=== PATIENT | male | born 1965 | race Caucasian/White ===

== ENCOUNTER 2016-10-24 07:40 | Inpatient (IN) | payer BC, MEDICAID, OTHER ==
[2016-10-24] MEDS ORDERED: Sodium Chloride 0.9% 10 ML Syringe FLUSH PRN (09:45)
[2016-10-24] MEDS ORDERED: Iopamidol 755 MG/ML 150 ML Bottle IV ONE (09:53)
[2016-10-24] MEDS ORDERED: Ondansetron 4 MG/2 ML SDV IVPUSH PRN (09:53)
[2016-10-24] MEDS ORDERED: Sodium Chloride 0.9% 1,000 ML IV SCH (10:00)
[2016-10-24] MEDS: Sodium Chloride 0.9% 1,000 ML IV SCH ×3 (12:39→21:03)
--- NOTE | 2016-10-24 13:27 | CT ---
INDICATION: Abdominal pain. History of right nephrectomy for renal cell carcinoma [address] ABDOMEN AND PELVIS WITH CONTRAST: Spiral 2.5-mm axial sections were obtained through the abdomen and pelvis with oral and IV contrast (118 mL Isovue -370 at 3 mL per second) with sagittal and coronal reconstructions 10/24/2016 and compared with 10/19/2014. Total Exam DLP = 1156.92 mGy-cm. There appears to be increased calcification focally at the apex of the right ventricle compared with 2015. This may represent a coronary artery calcification, but should be correlated clinically. The heart did not appear increased in size or grossly enlarged. The lower lung jang visualized showed no evidence of a definite active infiltrate or effusion. There was a linear strand of density at the right lower lobe, which likely is fibrotic in nature. The liver, spleen, and gallbladder were unremarkable. The right kidney has increased in size compared with the previous examination to a maximum of 13 cm, compared with approximately 11 cm on the previous study, compatible with compensatory hypertrophy. Stable bilateral adrenal adenomas are suggested, as previously, appearing essentially unchanged, measuring 13 mm on the right and 26 mm on the left on coronal image #75. The left kidney showed evidence of a small cyst which has increased in size slightly to approximately 12 x 16 mm in the posterior medulla and cortex, compared with approximately 7.6 x 10 mm on the previous study. This lies in the upper middle pole of the left kidney. No focal abnormality was identified in the post nephrectomy right renal bed with colon now in that area. Multiple loops of dilated small bowel are noted to the distal ileum where the bowel narrows to normal lumen diameter gradually from dilated loops at the distal ileum. A definite focal are of obstruction is not identified, but it is suspected that an adhesion is present in that area of the right lower quadrant. The transition is felt to be present on coronal images #49 through #60. No definite focal abnormality to suggest a metastatic deposit was identified. The urinary bladder appeared normal. There is no definite focal retroperitoneal mass lesion. Retroperitoneal lymphadenopathy is noted, largely similar to the previous examination. It is relatively nonspecific. The largest node measured approximately 11 mm and is stable. The appendix appeared normal, measuring approximately 7.1 mm, seen on axial images #97 through #112, extending posterior to the cecum and inferior to the cecum. There are a few small fluid collections scattered about the abdomen in the retrocolic gutter on the right, upper right pelvis, mid right posterior pelvis, and posterior in lower pelvis, anterior to the rectosigmoid - rectum. These fluid collections could be related to previous surgery and scarring. Peritonitis is felt to be less likely. The prostate is enlarged, measuring 41 mm craniocaudad by 41 mm anteroposterior by 53 mm transversely. There are a few calcifications noted in the prostate also. The urinary bladder appeared normal. The inferior vena cava appeared to be patent. No definite gastric abnormality was identified. IMPRESSION: 1. Findings suggest a mechanical small-bowel obstruction distally at the level of the ileum with transition to normal distal-most ileum. Associated with this finding are multiple foci of fluid collections scattered about the abdomen, including a right paracolic gutter and upper through lower pelvis on the right and then centrally more inferiorly in the pelvis, anterior to the rectosigmoid area - rectum. An adhesion is suspected. This should be correlated clinically. 2. Bilateral adrenal adenomas appear to be stable. 3. Post right nephrectomy with no evidence of tumor bed metastasis or generalized metastatic process. 4. Small probable benign cystic structure upper middle pole right kidney has increased in size from a maximum diameter of 10 mm to 16 mm on the current study. Prostatic enlargement with some calcifications present. CT PELVIS: Examination of the pelvis was obtained by CT, as noted above, and revealed findings compatible with a distal small-bowel obstruction with normal caliber distal-most ileum noted in the right lower quadrant. This appears to be associated with multiple small fluid collections scattered about the pelvis mostly on the right, extending into the right paracolic gutter and into the lower posterior pelvis, anterior to the rectosigmoid. The prostate was somewhat enlarged. No additional organomegaly or mass lesions were identified. No definite metastatic disease process was seen. MTDD
--- NOTE | 2016-10-24 14:08 | PCM.HP ---
H&P History of Present Illness - General Date of Service: 10/24/16 Admit Problem/Dx: Admission Diagnosis/Problem Admission Diagnosis/Problem Abdominal pain Source of Information: Patient History Limitations: Reports: No Limitations - History of Present Illness Initial Comments - Free Text/Narative: This is a 51-year-old male patient that's had one week history of some diarrhea and vomiting. Says a diarrhea better but he continues to vomit. He saw Dr. Gonzales yesterday and his creatinine was 2.5. He has a history of nephrectomy for cancer. He was given a bag of fluid sent home on Zofran and potassium because of his low potassium. He came back today and not any better so he felt he should be admitted. Patient denies fevers, chills. He has abdominal cramping that is diffuse. He denies a blood in stool. He denies dysuria, pyuria, hematuria. Patient states he [place] got [place] from [place] but [place] in [place]. He is not been on any antibiotics recently. Abdomen Pain Score (Numeric/FACES): 10 - Related Data Allergies/Adverse Reactions: Allergies Allergy/AdvReac Type Severity Reaction Status Date / Time No Known Allergies Allergy Verified 10/24/16 11:18 Home Medications: Home Meds Allopurinol [Zyloprim] 300 mg PO DAILY 10/24/16 [History] Lisinopril 20 mg PO DAILY 10/24/16 [History] Ondansetron [Zofran ODT] 4 mg PO Q6H PRN 10/24/16 [History] Pantoprazole Sodium [Protonix] 40 mg PO DAILY 10/24/16 [History] Potassium Chloride [Klor-Con M20] 20 meq PO DAILY 10/24/16 [History] atorvaSTATin [Lipitor] 20 mg PO BEDTIME 10/24/16 [History] Past Medical History Other Genitourinary History: pt had right kidney removed in January 2014 d/t a tumor Musculoskeletal History: Reports: Gout Oncologic (Cancer) History: Reports: Other (See Below) Other Oncologic History: Pt had right kidney removed due to tumor. - Infectious Disease History Infectious Disease History: Reports: Chicken Pox - Past Surgical History HEENT Surgical History: Reports: Naso-Sinus Surgery Other HEENT Surgeries/Procedures: Pt had nasal surgery in 1988. Male Surgical History: Reports: Vasectomy Social & Family History - Family History Cardiac: Reports: Hypertension, [place] - Tobacco Use Smoking Status *Q: Current Some Day Smoker Years of Tobacco use: 30 Packs/Tins Daily: 0.5 - Alcohol Use Days Per Week of Alcohol Use: 2 Number of Drinks Per Day: 3 Total Drinks Per Week: 6 - Recreational Drug Use Recreational Drug Use: No H&P Review of Systems - Review of Systems: Review Of Systems: See Below General: Reports: Weakness, Decreased Appetite HEENT: Reports: No Symptoms Pulmonary: Reports: No Symptoms Cardiovascular: Reports: No Symptoms Gastrointestinal: Reports: Abdominal Pain, Diarrhea, Decreased Appetite, Nausea , Vomiting. Denies: Black Stool, Bloody Stool, Constipation, Difficulty Swallowing, Hematemesis, Hematochezia, Melena Genitourinary: Reports: No Symptoms Musculoskeletal: Reports: No Symptoms Skin: Reports: No Symptoms Psychiatric: Reports: No Symptoms Neurological: Reports: No Symptoms Hematologic/Lymphatic: Reports: No Symptoms Immunologic: Reports: No Symptoms Exam - Exam Exam: See Below - Vital Signs Vital Signs: Last Vital Signs Temp Pulse 76 10/24/16 09:09 Resp 18 10/24/16 09:09 BP 111/74 10/24/16 09:09 Pulse Ox 96 10/24/16 09:09 Weight: 207 lb - Exam General: Alert, Oriented, Mild Distress HEENT: Hearing Intact, Posterior Pharynx Clear, TMs Clear. No: Mucosa Moist & [place] Neck: Supple, Trachea Midline. No: Lymphadenopathy Lungs: Clear to Auscultation, Normal Respiratory Effort. No: Crackles, Rales, Rhonchi Cardiovascular: Regular Rate, Regular Rhythm, Normal S1, Normal S2. No: Irregular Rhythm, Bradycardia, Tachycardia, Systolic Murmur, Diastolic Murmur GI/Abdominal Exam: Soft, No Organomegaly, Distended, Tender (Mildly diffuse.), Other (Hypoactive bowel sounds.) Back Exam: Normal Inspection Extremities: Normal Inspection, Normal Range of Motion, Non-Tender, No Pedal Edema Skin: Dry, Intact Neurological: Normal Tone Neuro Extensive - Mental Status: Alert, Oriented x3, Normal Cognition Psychiatric: Alert. No: Normal Affect, Normal Mood - Patient Data Lab Results Last 24 hrs: Laboratory Results - last 24 hr 10/24/16 10/24/16 10/24/16 Range/Units 10:05 10:05 10:05 WBC 9.1 (4.5-12.0) X10-3/uL RBC 6.21 H (4.30-5.75) x10(6)uL Hgb 17.5 H (11.5-15.5) g/dL Hct 52.4 H (30.0-51.3) % MCV 84.3 (80-96) fL MCH 28.1 (27.7-33.6) pg MCHC 33.4 (32.2-35.4) g/dL RDW 13.3 (11.5-15.5) % Plt Count 235 (125-369) X10(3)uL Sodium 136 (135-145) mmol/L Potassium 3.5 (3.5-5.3) mmol/L Chloride 94 L (100-110) mmol/L Carbon Dioxide 32 H (23-29) mmol/L BUN 61 H (5-20) mg/dL Creatinine 1.3 (0.6-1.3) mg/dL Est Cr Clr Drug Dosing 66.47 mL/min Estimated GFR (MDRD) 58 L (>60) BUN/Creatinine Ratio 46.9 H (9-20) Glucose 122 H (80-116) mg/dL Calcium 9.6 (8.6-10.2) mg/dL Total Bilirubin 1.2 (0.1-1.3) mg/dL AST 15 (5-27) IU/L ALT 13 L (14-26) IU/L Alkaline Phosphatase 86 (56-112) IU/L Total Protein 7.9 (6.0-8.0) g/dL Albumin 4.4 (3.5-5.2) g/dL Globulin 3.5 g/dL Albumin/Globulin Ratio 1.3 Amylase 39 (28-100) U/L Result Diagrams: 10/24/16 10:05 10/24/16 10:05 *Q Meaningful Use (ADM) - VTE *Q VTE Criteria *Q: - Stroke *Q Stroke Criteria *Q: - AMI *Q AMI Criteria *Q: - Problem List (1) Gastroenteritis SNOMED Code(s): 91370064 ICD Code: K52.9 - NONINFECTIVE GASTROENTERITIS AND COLITIS, UNSPECIFIED Status: Acute Current Visit: Yes (2) Dehydration SNOMED Code(s): 44991969 ICD Code: E86.0 - DEHYDRATION Status: Acute Current Visit: Yes Problem List Initiated/Reviewed/Updated: Yes Orders Last 24hrs: Active Orders 24 hr Category Date Time Status Patient Status [ADT] Routine ADT 10/24/16 09:45 Active Height and Weight [RC] DAILY Care 10/24/16 09:45 Active Intake and Output [RC] QSHIFT Care 10/24/16 09:46 Active Oxygen Therapy [RC] PRN Care 10/24/16 09:45 Active Up ad Deya [RC] ASDIRECTED Care 10/24/16 09:45 Active VTE/DVT Education [RC] Per Unit Routine Care 10/24/16 09:45 Active Vital Signs [RC] 08,12,16,20,00,04 Care 10/24/16 09:45 Active Clear Liquid Diet [DIET] Diet 10/24/16 Lunch Active CULTURE-STOOL [MREF] Routine Lab 10/24/16 09:50 Uncollected UA W/O MICROSCOPIC [URIN] Routine Lab 10/24/16 09:45 Uncollected Ondansetron [Zofran] Med 10/24/16 09:53 Active 4 mg IVPUSH Q4H PRN Sodium Chloride 0.9% [Normal Saline] 1,000 ml Med 10/24/16 12:15 Active IV ASDIRECTED Sodium Chloride 0.9% [Saline Flush] Med 10/24/16 09:45 Active 10 ml FLUSH ASDIRECTED PRN Peripheral IV Insertion Adult [OM.PC] Routine Oth 10/24/16 09:45 Ordered Resuscitation Status Routine Resus Stat 10/24/16 09:45 Ordered Medication Orders Sodium Chloride (Normal Saline) 1,000 mls @ 250 mls/hr IV ASDIRECTED [facility] Last Admin: 10/24/16 12:39 Dose: 250 mls/hr Ondansetron HCl (Zofran) 4 mg IVPUSH Q4H PRN PRN Reason: Nausea/Vomiting Sodium Chloride (Saline Flush) 10 ml FLUSH ASDIRECTED PRN PRN Reason: Keep Vein Open Last Admin: 10/24/16 10:24 Dose: 10 ml Assessment/Plan Comment:: 1. For observation. 2. Clear liquids. 3. Hold home medications. 4. Zofran IV when necessary for nausea or vomiting. 5. CT scan abdomen and pelvis 6. CBC, Chem-12, amylase, UA 7. Up ad deya. 8. Full code.
[2016-10-24] MEDS ORDERED: Morphine 4 MG/ML Syringe IVPUSH PRN (15:17)
[2016-10-24] MEDS ORDERED: Lidocaine 2% Jelly 5 ML Urojet MUCMEM ONE ×2 (15:18→15:19)
--- NOTE | 2016-10-24 15:31 | PCM.SN ---
- Free Text/Narrative Note: full consult dictated orders written will follow with you
[2016-10-24] MEDS: Pantoprazole 40 MG Vial IVPUSH SCH (17:10)
[2016-10-24] MEDS: Nicotine 14 MG/24 Hr Patch TRDERM SCH (19:44)
--- NOTE | 2016-10-24 23:10 | CONS ---
DATE OF CONSULTATION: 10/24/2016 REASON FOR CONSULTATION: Small bowel obstruction. HISTORY OF PRESENT ILLNESS: This is a 51-year-old, white male, who was admitted today with a one-week history of abdominal pain, abdominal distention, nausea, vomiting, and diarrhea. He said that this started approximately one week ago, was accompanied with abdominal discomfort. Apparently, was seen in the clinic yesterday and was noted to have an elevated creatinine, was given some IV fluid and sent home, presented today and was just as bad in terms of his discomfort and nausea and vomiting. He did state that he has been passing gas, he had a bowel movement today, has had some emesis as well. Denies any fever or chills. Has occasional abdominal cramping. He had a CT scan done today, which demonstrated some dilated intestine consistent with a small-bowel obstruction. His abdominal surgery history is significant for right nephrectomy, for cancer. Currently, denies any black or bloody stools, hematemesis, dysuria, hematuria, fever, or chills. SOCIAL HISTORY: The patient does smoke half a pack per day. Does have occasional 2-3 drinks per week, mainly on the weekend. FAMILY HISTORY: Significant for hypertension. PAST MEDICAL HISTORY: Significant for renal tumor, gout, gastroesophageal reflux disease, hypertension, and hypercholesterolemia. PAST SURGICAL HISTORY: Significant for nasal surgery, vasectomy, and a right nephrectomy. HOME MEDICATIONS: At the time of admission included allopurinol 300 mg daily, lisinopril 20 mg daily, Zofran 4 mg p.o. q.6, Protonix 40 mg daily, potassium chloride daily, and Lipitor 20 mg daily. REVIEW OF SYSTEMS: CONSTITUTIONAL: Some weakness and decreased appetite. HEENT: Negative. PULMONARY: Negative. CARDIAC: Negative. GASTROINTESTINAL: As noted above. GENITOURINARY: Denies any symptoms. MUSCULOSKELETAL: Denies any symptoms. SKIN: Denies any symptoms. NEUROLOGIC: Denies any symptoms. PHYSICAL EXAMINATION: GENERAL: This is a well-developed, well-nourished white male, appearing in mild distress. VITAL SIGNS: Temperature is 36.7, pulse rate is 73, blood pressure 129/85, 93% on pulse oximetry, respiratory rate 16. HEENT: Grossly within normal limits. LUNGS: Clear to auscultation. HEART: Regular rate and rhythm. ABDOMEN: Noted to be distended and tympanic with some mild tenderness throughout, but no rebound or guarding was noted. LABORATORY DATA: CT scan was reviewed, which demonstrates findings suggestive of small-bowel obstruction in the level of the ileum. He had stable bilateral adrenal adenomas status post right nephrectomy and has a small cystic structure in the left kidney. White count is 9.3 with H and H 17.5 and 52.4. Electrolytes were notable for chloride of 94, carbon dioxide of 32, BUN 61, glucose of 122, ALT of 13. UA was essentially unremarkable. ASSESSMENT: Small bowel obstruction. PLAN: In addition to the hydration, which the patient is currently getting, I will be placing an NG tube and a Carter catheter to fully monitor his in's and out's. Recommend repeat laboratory work in the morning. We will follow along with serial exams. /[id number] /MODL
[2016-10-25] MEDS: Sodium Chloride 0.9% 1,000 ML IV SCH (03:53)
[2016-10-25] MEDS: Morphine 2 MG/ML Syringe IVPUSH PRN (05:39)
--- NOTE | 2016-10-25 07:45 | PCM.PN ---
- General Info Date of Service: 10/25/16 Admission Dx/Problem (Free Text): Patient states he has no nausea or vomiting with NG tube. His abdominal pain is a little bit better and mostly under the umbilicus centrally. He has passed some gas. Had a little diarrhea yesterday. - Patient Data Vitals - Most Recent: Last Vital Signs Temp 97.9 F 10/25/16 07:37 Pulse 58 L 10/25/16 07:37 Resp 16 10/25/16 07:37 BP 126/75 10/25/16 07:37 Pulse Ox 93 L 10/25/16 07:37 Weight - Most Recent: 211 lb I&O - Last 24 Hours: Intake & Output 10/24/16 10/25/16 10/25/16 22:59 06:59 14:59 Intake Total 2137 1064 Output Total 1200 800 Balance 937 264 Lab Results Last 24 Hours: Laboratory Results - last 24 hr 10/24/16 10/24/16 10/24/16 Range/Units 10:05 10:05 10:05 WBC 9.1 (4.5-12.0) X10-3/uL RBC 6.21 H (4.30-5.75) x10(6)uL Hgb 17.5 H (11.5-15.5) g/dL Hct 52.4 H (30.0-51.3) % MCV 84.3 (80-96) fL MCH 28.1 (27.7-33.6) pg MCHC 33.4 (32.2-35.4) g/dL RDW 13.3 (11.5-15.5) % Plt Count 235 (125-369) X10(3)uL MPV (7.4-10.4) fL Neut % (Auto) (46-82) % Lymph % (Auto) (13-37) % [place] % (Auto) (4-12) % Eos % (Auto) (1.0-5.0) % Baso % (Auto) (0-2) % Neut # (Auto) (1.6-8.3) # Lymph # (Auto) (0.6-5.0) # [place] # (Auto) (0.0-1.3) # Eos # (Auto) (0.0-0.8) # Baso # (Auto) (0.0-0.2) # Sodium 136 (135-145) mmol/L Potassium 3.5 (3.5-5.3) mmol/L Chloride 94 L (100-110) mmol/L Carbon Dioxide 32 H (23-29) mmol/L BUN 61 H (5-20) mg/dL Creatinine 1.3 (0.6-1.3) mg/dL Est Cr Clr Drug Dosing 66.47 mL/min Estimated GFR (MDRD) 58 L (>60) BUN/Creatinine Ratio 46.9 H (9-20) Glucose 122 H (80-116) mg/dL Calcium 9.6 (8.6-10.2) mg/dL Total Bilirubin 1.2 (0.1-1.3) mg/dL AST 15 (5-27) IU/L ALT 13 L (14-26) IU/L Alkaline Phosphatase 86 (56-112) IU/L Total Protein 7.9 (6.0-8.0) g/dL Albumin 4.4 (3.5-5.2) g/dL Globulin 3.5 g/dL Albumin/Globulin Ratio 1.3 Amylase 39 (28-100) U/L Urine Color (YELLOW) Urine Appearance (CLEAR) Urine pH (5.0-6.5) Ur Specific [place] (1.010-1.025) Urine Protein (NEGATIVE) mg/dL Urine Glucose (UA) (NEGATIVE) mg/dL Urine Ketones (NEGATIVE) mg/dL Urine Occult Blood (NEGATIVE) Urine Nitrite (NEGATIVE) Urine Bilirubin (NEGATIVE) Urine Urobilinogen (NEGATIVE) mg/dL Ur Leukocyte Esterase (NEGATIVE) 10/24/16 10/25/16 10/25/16 Range/Units 14:22 06:35 06:35 WBC 6.7 (4.5-12.0) X10-3/uL RBC 5.36 (4.30-5.75) x10(6)uL Hgb 15.0 (11.5-15.5) g/dL Hct 45.6 (30.0-51.3) % MCV 85.1 (80-96) fL MCH 28.0 (27.7-33.6) pg MCHC 32.9 (32.2-35.4) g/dL RDW 13.1 (11.5-15.5) % Plt Count 216 (125-369) X10(3)uL MPV 9.5 (7.4-10.4) fL Neut % (Auto) 56.2 (46-82) % Lymph % (Auto) 26.1 (13-37) % [place] % (Auto) 13.5 H (4-12) % Eos % (Auto) 3 (1.0-5.0) % Baso % (Auto) 1 (0-2) % Neut # (Auto) 3.8 (1.6-8.3) # Lymph # (Auto) 1.7 (0.6-5.0) # [place] # (Auto) 0.9 (0.0-1.3) # Eos # (Auto) 0.2 (0.0-0.8) # Baso # (Auto) 0.1 (0.0-0.2) # Sodium 142 (135-145) mmol/L Potassium 3.6 (3.5-5.3) mmol/L Chloride 107 D (100-110) mmol/L Carbon Dioxide 28 (23-29) mmol/L BUN 28 H D (5-20) mg/dL Creatinine 0.8 (0.6-1.3) mg/dL Est Cr Clr Drug Dosing 108.01 mL/min Estimated GFR (MDRD) > 60 (>60) BUN/Creatinine Ratio 35.0 H (9-20) Glucose 102 (80-116) mg/dL Calcium 8.9 (8.6-10.2) mg/dL Total Bilirubin 1.1 (0.1-1.3) mg/dL AST 11 D (5-27) IU/L ALT 10 L D (14-26) IU/L Alkaline Phosphatase 71 (56-112) IU/L Total Protein 6.2 (6.0-8.0) g/dL Albumin 3.6 (3.5-5.2) g/dL Globulin 2.6 g/dL Albumin/Globulin Ratio 1.4 Amylase (28-100) U/L Urine Color Yellow (YELLOW) Urine Appearance Clear (CLEAR) Urine pH 7.0 H (5.0-6.5) Ur Specific [place] 1.005 L (1.010-1.025) Urine Protein Negative (NEGATIVE) mg/dL Urine Glucose (UA) Normal (NEGATIVE) mg/dL Urine Ketones Negative (NEGATIVE) mg/dL Urine Occult Blood Negative (NEGATIVE) Urine Nitrite Negative (NEGATIVE) Urine Bilirubin Negative (NEGATIVE) Urine Urobilinogen Normal (NEGATIVE) mg/dL Ur Leukocyte Esterase Negative (NEGATIVE) Med Orders - Current: Current Medications Morphine Sulfate (Morphine) 2 mg IVPUSH Q1H PRN PRN Reason: Pain Last Admin: 10/25/16 05:39 Dose: 2 mg Nicotine (Habitrol) 14 mg TRDERM DAILY@1600 [facility] Last Admin: 10/24/16 19:44 Dose: Not Given Ondansetron HCl (Zofran) 4 mg IVPUSH Q4H PRN PRN Reason: Nausea/Vomiting Pantoprazole Sodium (Protonix Iv) 40 mg IVPUSH Q24H [facility] Last Admin: 10/24/16 17:10 Dose: 40 mg Sodium Chloride (Saline Flush) 10 ml FLUSH ASDIRECTED PRN PRN Reason: Keep Vein Open Last Admin: 10/24/16 10:24 Dose: 10 ml Discontinued Medications Sodium Chloride (Normal Saline) 1,000 mls @ 500 mls/hr IV ASDIRECTED [facility] Stop: 10/24/16 11:59 Last Admin: 10/24/16 10:25 Dose: 500 mls/hr Sodium Chloride (Normal Saline) 1,000 mls @ 150 mls/hr IV ASDIRECTED [facility] Last Admin: 10/25/16 03:53 Dose: 150 mls/hr Iopamidol (Isovue-370 (76%)) 150 ml IV ONETIME ONE Stop: 10/24/16 09:54 Last Admin: 10/24/16 11:19 Dose: 118 ml Lidocaine HCl (Xylocaine 2% Jelly) 5 ml MUCMEM ONETIME ONE Stop: 10/24/16 15:19 Last Admin: 10/24/16 16:08 Dose: 5 ml Lidocaine HCl (Xylocaine 2% Jelly) 5 ml MUCMEM ONETIME ONE Stop: 10/24/16 15:20 Last Admin: 10/24/16 16:08 Dose: 5 ml Morphine Sulfate (Morphine) 4 mg IVPUSH Q4H PRN PRN Reason: Abdominal Pain Last Admin: 10/24/16 17:35 Dose: 4 mg - Exam General: Alert, Oriented, Cooperative GI/Abdominal Exam: Other (Abdomen is soft still mildly distended. Hypoactive bowel sounds. Mild pain on palpation. No rebound or guarding.) - Problem List & Annotations (1) Dehydration SNOMED Code(s): 61852555 Code(s): E86.0 - DEHYDRATION Status: Acute Current Visit: Yes (2) Small bowel obstruction SNOMED Code(s): 293210514 Code(s): K56.69 - OTHER INTESTINAL OBSTRUCTION Status: Acute Current Visit: Yes - Problem List Review Problem List Initiated/Reviewed/Updated: Yes - My Orders Last 24 Hours: My Active Orders 10/24/16 09:45 Height and Weight [RC] DAILY Oxygen Therapy [RC] PRN Up ad Deya [RC] ASDIRECTED VTE/DVT Education [RC] Per Unit Routine Vital Signs [RC] 08,12,16,20,00,04 Sodium Chloride 0.9% [Saline Flush] 10 ml FLUSH ASDIRECTED PRN Peripheral IV Insertion Adult [OM.PC] Routine Resuscitation Status Routine 10/24/16 09:46 Intake and Output [RC] 06,14,22 10/24/16 09:50 CULTURE-STOOL [MREF] Routine 10/24/16 09:53 Ondansetron [Zofran] 4 mg IVPUSH Q4H PRN 10/24/16 14:13 Consult to Physician [CONS] Routine 10/24/16 17:37 Morphine 2 mg IVPUSH Q1H PRN 10/24/16 Dinner Nothing per Oral Now Diet [DIET] 10/25/16 07:40 Patient Status [ADT] Routine 10/25/16 07:45 D5 1/2 NS w/ 20 mEq/L KCl 1,000 ml IV ASDIRECTED - Plan Plan:: 1. Hydrations much improved. Changes fluids to D5 half-normal saline at 1 25 mL an hour. 2. Changes status from observation to inpatient. 3. Dr. Kelley to manage NG tube, small bowel obstruction and Carter.
[2016-10-25] MEDS: D5 1/2 NS w/ 20 mEq/L KCl 1,000 ML IV SCH ×2 (09:43→17:22)
--- NOTE | 2016-10-25 10:32 | PCM.SURGPN ---
- General Info Date of Service: 10/25/16 - Review of Systems Systems Review Comment:: feels better today. still has some abdominal pain had a bowel movement this am. - Patient Data Vitals - Most Recent: Last Vital Signs Temp 36.6 C 10/25/16 07:37 Pulse 58 L 10/25/16 07:37 Resp 16 10/25/16 07:37 BP 126/75 10/25/16 07:37 Pulse Ox 93 L 10/25/16 07:37 Weight - Most Recent: 95.799 kg I&O - Last 24 Hours: Intake & Output 10/24/16 10/25/16 10/25/16 22:59 06:59 14:59 Intake Total 2137 1064 Output Total 1200 800 Balance 937 264 Lab Results Last 24 Hrs: Laboratory Results - last 24 hr 10/24/16 10/25/16 10/25/16 Range/Units 14:22 06:35 06:35 WBC 6.7 (4.5-12.0) X10-3/uL RBC 5.36 (4.30-5.75) x10(6)uL Hgb 15.0 (11.5-15.5) g/dL Hct 45.6 (30.0-51.3) % MCV 85.1 (80-96) fL MCH 28.0 (27.7-33.6) pg MCHC 32.9 (32.2-35.4) g/dL RDW 13.1 (11.5-15.5) % Plt Count 216 (125-369) X10(3)uL MPV 9.5 (7.4-10.4) fL Neut % (Auto) 56.2 (46-82) % Lymph % (Auto) 26.1 (13-37) % Rankin % (Auto) 13.5 H (4-12) % Eos % (Auto) 3 (1.0-5.0) % Baso % (Auto) 1 (0-2) % Neut # (Auto) 3.8 (1.6-8.3) # Lymph # (Auto) 1.7 (0.6-5.0) # Rankin # (Auto) 0.9 (0.0-1.3) # Eos # (Auto) 0.2 (0.0-0.8) # Baso # (Auto) 0.1 (0.0-0.2) # Sodium 142 (135-145) mmol/L Potassium 3.6 (3.5-5.3) mmol/L Chloride 107 D (100-110) mmol/L Carbon Dioxide 28 (23-29) mmol/L BUN 28 H D (5-20) mg/dL Creatinine 0.8 (0.6-1.3) mg/dL Est Cr Clr Drug Dosing 108.01 mL/min Estimated GFR (MDRD) > 60 (>60) BUN/Creatinine Ratio 35.0 H (9-20) Glucose 102 (80-116) mg/dL Calcium 8.9 (8.6-10.2) mg/dL Total Bilirubin 1.1 (0.1-1.3) mg/dL AST 11 D (5-27) IU/L ALT 10 L D (14-26) IU/L Alkaline Phosphatase 71 (56-112) IU/L Total Protein 6.2 (6.0-8.0) g/dL Albumin 3.6 (3.5-5.2) g/dL Globulin 2.6 g/dL Albumin/Globulin Ratio 1.4 Urine Color Yellow (YELLOW) Urine Appearance Clear (CLEAR) Urine pH 7.0 H (5.0-6.5) Ur Specific [place] 1.005 L (1.010-1.025) Urine Protein Negative (NEGATIVE) mg/dL Urine Glucose (UA) Normal (NEGATIVE) mg/dL Urine Ketones Negative (NEGATIVE) mg/dL Urine Occult Blood Negative (NEGATIVE) Urine Nitrite Negative (NEGATIVE) Urine Bilirubin Negative (NEGATIVE) Urine Urobilinogen Normal (NEGATIVE) mg/dL Ur Leukocyte Esterase Negative (NEGATIVE) Med Orders - Current: Current Medications Potassium Chloride/Dextrose/Sod Cl (D5 1/2 Ns W/ 20 Meq/L Kcl) 1,000 mls @ 125 mls/hr IV Q8H [facility] Last Admin: 10/25/16 09:43 Dose: 125 mls/hr Morphine Sulfate (Morphine) 2 mg IVPUSH Q1H PRN PRN Reason: Pain Last Admin: 10/25/16 05:39 Dose: 2 mg Nicotine (Habitrol) 14 mg TRDERM DAILY@1600 [facility] Last Admin: 10/24/16 19:44 Dose: Not Given Ondansetron HCl (Zofran) 4 mg IVPUSH Q4H PRN PRN Reason: Nausea/Vomiting Pantoprazole Sodium (Protonix Iv) 40 mg IVPUSH Q24H [facility] Last Admin: 10/24/16 17:10 Dose: 40 mg Sodium Chloride (Saline Flush) 10 ml FLUSH ASDIRECTED PRN PRN Reason: Keep Vein Open Last Admin: 10/24/16 10:24 Dose: 10 ml Discontinued Medications Sodium Chloride (Normal Saline) 1,000 mls @ 500 mls/hr IV ASDIRECTED [facility] Stop: 10/24/16 11:59 Last Admin: 10/24/16 10:25 Dose: 500 mls/hr Sodium Chloride (Normal Saline) 1,000 mls @ 150 mls/hr IV ASDIRECTED [facility] Last Admin: 10/25/16 03:53 Dose: 150 mls/hr Iopamidol (Isovue-370 (76%)) 150 ml IV ONETIME ONE Stop: 10/24/16 09:54 Last Admin: 10/24/16 11:19 Dose: 118 ml Lidocaine HCl (Xylocaine 2% Jelly) 5 ml MUCMEM ONETIME ONE Stop: 10/24/16 15:19 Last Admin: 10/24/16 16:08 Dose: 5 ml Lidocaine HCl (Xylocaine 2% Jelly) 5 ml MUCMEM ONETIME ONE Stop: 10/24/16 15:20 Last Admin: 10/24/16 16:08 Dose: 5 ml Morphine Sulfate (Morphine) 4 mg IVPUSH Q4H PRN PRN Reason: Abdominal Pain Last Admin: 10/24/16 17:35 Dose: 4 mg - Exam General: Alert, Oriented, No Acute Distress Lungs: Clear to Auscultation, Normal Respiratory Effort Cardiovascular: Regular Rate, Regular Rhythm GI/Abdominal Exam: Normal Bowel Sounds, Soft, Distended (but much improved since yesterday ). No: Tender - Problem List & Annotations (1) Small bowel obstruction SNOMED Code(s): 923394417 Code(s): K56.69 - OTHER INTESTINAL OBSTRUCTION Status: Acute Current Visit: Yes - Problem List Review Problem List Initiated/Reviewed/Updated: Yes - My Orders Last 24 Hours: Active Orders 24 hr Category Date Time Status Patient Status [ADT] Routine ADT 10/25/16 07:40 Active Carter Catheter Insertion [Insert Urinary Catheter] [OM. Care 10/24/16 15:30 Ordered PC] Q24H Gastrointestinal Tube Mgmt [RC] 08,16,00 Care 10/24/16 15:16 Active Height and Weight [RC] 06 Care 10/24/16 09:45 Active Intake and Output [RC] 06,14,22 Care 10/24/16 09:46 Active Oxygen Therapy [RC] PRN Care 10/24/16 09:45 Active Up ad Deya [RC] ASDIRECTED Care 10/24/16 09:45 Active Urinary Catheter Assessment [RC] QSHIFT Care 10/24/16 15:17 Active VTE/DVT Education [RC] Per Unit Routine Care 10/24/16 09:45 Active Vital Signs [RC] 08,12,16,20,00,04 Care 10/24/16 09:45 Active Consult to Physician [CONS] Routine Cons 10/24/16 14:13 Ordered Nothing per Oral Now Diet [DIET] Diet 10/24/16 Dinner Active CULTURE-STOOL [MREF] Routine Lab 10/24/16 09:48 Received D5 1/2 NS w/ 20 mEq/L KCl 1,000 ml Med 10/25/16 07:45 Active IV Q8H Morphine Med 10/24/16 17:37 Active 2 mg IVPUSH Q1H PRN Nicotine [Habitrol] Med 10/24/16 16:00 Active 14 mg TRDERM DAILY@1600 Ondansetron [Zofran] Med 10/24/16 09:53 Active 4 mg IVPUSH Q4H PRN Pantoprazole [ProTONIX IV] Med 10/24/16 16:00 Active 40 mg IVPUSH Q24H Sodium Chloride 0.9% [Saline Flush] Med 10/24/16 09:45 Active 10 ml FLUSH ASDIRECTED PRN NG [Nasogastric Orogastric Tube Insertion] [OM.PC] Oth 10/24/16 15:16 Ordered Routine Peripheral IV Insertion Adult [OM.PC] Routine Oth 10/24/16 09:45 Ordered Resuscitation Status Routine Resus Stat 10/24/16 09:45 Ordered Medication Orders Potassium Chloride/Dextrose/Sod Cl (D5 1/2 Ns W/ 20 Meq/L Kcl) 1,000 mls @ 125 mls/hr IV Q8H [facility] Last Admin: 10/25/16 09:43 Dose: 125 mls/hr Morphine Sulfate (Morphine) 2 mg IVPUSH Q1H PRN PRN Reason: Pain Last Admin: 10/25/16 05:39 Dose: 2 mg Nicotine (Habitrol) 14 mg TRDERM DAILY@1600 [facility] Last Admin: 10/24/16 19:44 Dose: Ondansetron HCl (Zofran) 4 mg IVPUSH Q4H PRN PRN Reason: Nausea/Vomiting Pantoprazole Sodium (Protonix Iv) 40 mg IVPUSH Q24H [facility] Last Admin: 10/24/16 17:10 Dose: 40 mg Sodium Chloride (Saline Flush) 10 ml FLUSH ASDIRECTED PRN PRN Reason: Keep Vein Open Last Admin: 10/24/16 10:24 Dose: 10 ml - Assessment Assessment (Free Text/Narrative):: improving - Plan Plan (Free Text/Narrative):: would continue current rx.
[2016-10-25] MEDS: Pantoprazole 40 MG Vial IVPUSH SCH (16:16)
[2016-10-25] MEDS: Nicotine 14 MG/24 Hr Patch TRDERM SCH (16:59)
--- NOTE | 2016-10-25 17:38 | PCM.SN ---
- Free Text/Narrative Note: continues to pass flatus. abd is feeling better. soft and nontender on exam. continues to improve. anticipate d/cing the ngt in am if he continues to improve.
[2016-10-26] MEDS: D5 1/2 NS w/ 20 mEq/L KCl 1,000 ML IV SCH ×4 (01:31→17:01)
--- NOTE | 2016-10-26 08:41 | PN ---
DATE SEEN: 10/26/2016 CHIEF COMPLAINT: Sore throat and ear pain. HISTORY OF PRESENT ILLNESS: A 51-year-old male admitted on the 10/24/2016 for small bowel obstruction. This morning complains of sore throat, despite using Chloraseptic spray. He also complains of ear pain with [id number]. He continues to pass flatus and this morning has no abdominal pain. PAST MEDICAL HISTORY: Hypertension. REVIEW OF SYSTEMS: No fever. PHYSICAL EXAMINATION: GENERAL: Not in distress. VITAL SIGNS: Blood pressure 144/99, temperature 98.4. EARS, NOSE AND THROAT: Negative. NECK: Supple. CARDIOVASCULAR: Normal. ABDOMEN: Soft, benign. Normal bowel sounds. LABORATORY DATA: This morning no new labs. FINAL IMPRESSION: 1. Small bowel obstruction. 2. Sore throat, likely due to NG tube. 3. Uncontrolled hypertension. PLAN: Dr. Kelley is managing the NG tube and I believe once it is out, the sore throat will feel better. I am not going to recommend anything today until the NG tube is out and he is able to eat for oral blood pressure medications. /[id number] BECKY/ALLISON
[2016-10-26] MEDS: Morphine 2 MG/ML Syringe IVPUSH PRN (09:37)
--- NOTE | 2016-10-26 10:47 | PCM.SURGPN ---
- General Info Date of Service: 10/26/16 - Review of Systems General: Reports: No Symptoms Gastrointestinal: Reports: Flatus, Other (bowel movement ). Denies: Abdominal Pain - Patient Data Vitals - Most Recent: Last Vital Signs Temp 36.9 C 10/26/16 07:50 Pulse 73 10/26/16 07:50 Resp 17 10/26/16 07:50 BP 144/99 H 10/26/16 07:50 Pulse Ox 94 L 10/26/16 07:50 Weight - Most Recent: 95.339 kg I&O - Last 24 Hours: Intake & Output 10/25/16 10/26/16 10/26/16 22:59 06:59 14:59 Intake Total 2160 928 Output Total 700 475 Balance 1460 453 Med Orders - Current: Current Medications Potassium Chloride/Dextrose/Sod Cl (D5 1/2 Ns W/ 20 Meq/L Kcl) 1,000 mls @ 125 mls/hr IV Q8H [facility] Last Admin: 10/26/16 09:11 Dose: 125 mls/hr Morphine Sulfate (Morphine) 2 mg IVPUSH Q1H PRN PRN Reason: Pain Last Admin: 10/26/16 09:37 Dose: 2 mg Nicotine (Habitrol) 14 mg TRDERM DAILY@1600 [facility] Last Admin: 10/25/16 16:59 Dose: Not Given Ondansetron HCl (Zofran) 4 mg IVPUSH Q4H PRN PRN Reason: Nausea/Vomiting Pantoprazole Sodium (Protonix Iv) 40 mg IVPUSH Q24H [facility] Last Admin: 10/25/16 16:16 Dose: 40 mg Sodium Chloride (Saline Flush) 10 ml FLUSH ASDIRECTED PRN PRN Reason: Keep Vein Open Last Admin: 10/24/16 10:24 Dose: 10 ml Discontinued Medications Sodium Chloride (Normal Saline) 1,000 mls @ 500 mls/hr IV ASDIRECTED [facility] Stop: 10/24/16 11:59 Last Admin: 10/24/16 10:25 Dose: 500 mls/hr Sodium Chloride (Normal Saline) 1,000 mls @ 150 mls/hr IV ASDIRECTED [facility] Last Admin: 10/25/16 03:53 Dose: 150 mls/hr Iopamidol (Isovue-370 (76%)) 150 ml IV ONETIME ONE Stop: 10/24/16 09:54 Last Admin: 10/24/16 11:19 Dose: 118 ml Lidocaine HCl (Xylocaine 2% Jelly) 5 ml MUCMEM ONETIME ONE Stop: 10/24/16 15:19 Last Admin: 10/24/16 16:08 Dose: 5 ml Lidocaine HCl (Xylocaine 2% Jelly) 5 ml MUCMEM ONETIME ONE Stop: 10/24/16 15:20 Last Admin: 10/24/16 16:08 Dose: 5 ml Morphine Sulfate (Morphine) 4 mg IVPUSH Q4H PRN PRN Reason: Abdominal Pain Last Admin: 10/24/16 17:35 Dose: 4 mg - Exam General: Alert, Oriented, Cooperative Lungs: Clear to Auscultation, Normal Respiratory Effort Cardiovascular: Regular Rate GI/Abdominal Exam: Normal Bowel Sounds, Soft, Non-Tender - Problem List & Annotations (1) Small bowel obstruction SNOMED Code(s): 305053758 Code(s): K56.69 - OTHER INTESTINAL OBSTRUCTION Status: Acute Current Visit: Yes - Problem List Review Problem List Initiated/Reviewed/Updated: Yes - My Orders Last 24 Hours: Active Orders 24 hr Category Date Time Status Communication Order [RC] ROUTINE Care 10/26/16 10:45 Ordered Remove Reyes Catheter [Urinary Catheter Removal] [RC] Care 10/26/16 10:44 Ordered Per Unit Routine Nothing per Oral Now Diet [DIET] Diet 10/26/16 Lunch Ordered NG [Nasogastric Orogastric Tube Removal] [OM.PC] Oth 10/26/16 10:44 Ordered Routine Medication Orders Potassium Chloride/Dextrose/Sod Cl (D5 1/2 Ns W/ 20 Meq/L Kcl) 1,000 mls @ 125 mls/hr IV Q8H [facility] Last Admin: 10/26/16 09:11 Dose: 125 mls/hr Infusion: 10/26/16 09:11 Dose: 125 mls/hr Admin: 10/26/16 01:35 Dose: 125 mls/hr Infusion: 10/26/16 01:35 Dose: 125 mls/hr Admin: 10/26/16 01:31 Dose: 125 mls/hr Infusion: 10/26/16 01:22 Dose: 125 mls/hr Admin: 10/25/16 17:22 Dose: 125 mls/hr Infusion: 10/25/16 17:22 Dose: 125 mls/hr Admin: 10/25/16 09:43 Dose: 125 mls/hr Morphine Sulfate (Morphine) 2 mg IVPUSH Q1H PRN PRN Reason: Pain Last Admin: 10/26/16 09:37 Dose: 2 mg Admin: 10/25/16 05:39 Dose: 2 mg Nicotine (Habitrol) 14 mg TRDERM DAILY@1600 [facility] Last Admin: 10/25/16 16:59 Dose: Not Given Admin: 10/24/16 19:44 Dose: Ondansetron HCl (Zofran) 4 mg IVPUSH Q4H PRN PRN Reason: Nausea/Vomiting Pantoprazole Sodium (Protonix Iv) 40 mg IVPUSH Q24H [facility] Last Admin: 10/25/16 16:16 Dose: 40 mg Admin: 10/24/16 17:10 Dose: 40 mg Sodium Chloride (Saline Flush) 10 ml FLUSH ASDIRECTED PRN PRN Reason: Keep Vein Open Last Admin: 10/24/16 10:24 Dose: 10 ml - Assessment Assessment (Free Text/Narrative):: ostruction appears resolving - Plan Plan (Free Text/Narrative):: dc ngt and reyes ice chips
[2016-10-26] MEDS: Nicotine 14 MG/24 Hr Patch TRDERM SCH (16:25)
[2016-10-26] MEDS: Pantoprazole 40 MG Vial IVPUSH SCH (16:28)
[2016-10-27] MEDS: D5 1/2 NS w/ 20 mEq/L KCl 1,000 ML IV SCH (01:35)
[2016-10-27 08:03] VITALS: BP 124/87
--- NOTE | 2016-10-27 09:07 | PCM.SURGPN ---
- General Info Date of Service: 10/27/16 Functional Status: Reports: Tolerating Diet - Review of Systems Gastrointestinal: Reports: No Symptoms - Patient Data Vitals - Most Recent: Last Vital Signs Temp 36.8 C 10/27/16 08:00 Pulse 76 10/27/16 08:00 Resp 18 10/27/16 08:00 BP 124/87 10/27/16 08:00 Pulse Ox 96 10/27/16 08:00 Weight - Most Recent: 96.162 kg I&O - Last 24 Hours: Intake & Output 10/26/16 10/27/16 10/27/16 22:59 06:59 14:59 Intake Total 909 1118 Output Total 200 100 Balance 909 918 -100 Med Orders - Current: Current Medications Potassium Chloride/Dextrose/Sod Cl (D5 1/2 Ns W/ 20 Meq/L Kcl) 1,000 mls @ 125 mls/hr IV Q8H [facility] Last Admin: 10/27/16 01:35 Dose: 125 mls/hr Morphine Sulfate (Morphine) 2 mg IVPUSH Q1H PRN PRN Reason: Pain Last Admin: 10/26/16 09:37 Dose: 2 mg Nicotine (Habitrol) 14 mg TRDERM DAILY@1600 [facility] Last Admin: 10/26/16 16:25 Dose: Not Given Ondansetron HCl (Zofran) 4 mg IVPUSH Q4H PRN PRN Reason: Nausea/Vomiting Pantoprazole Sodium (Protonix Iv) 40 mg IVPUSH Q24H [facility] Last Admin: 10/26/16 16:28 Dose: 40 mg Sodium Chloride (Saline Flush) 10 ml FLUSH ASDIRECTED PRN PRN Reason: Keep Vein Open Last Admin: 10/24/16 10:24 Dose: 10 ml Discontinued Medications Sodium Chloride (Normal Saline) 1,000 mls @ 500 mls/hr IV ASDIRECTED [facility] Stop: 10/24/16 11:59 Last Admin: 10/24/16 10:25 Dose: 500 mls/hr Sodium Chloride (Normal Saline) 1,000 mls @ 150 mls/hr IV ASDIRECTED [facility] Last Admin: 10/25/16 03:53 Dose: 150 mls/hr Iopamidol (Isovue-370 (76%)) 150 ml IV ONETIME ONE Stop: 10/24/16 09:54 Last Admin: 10/24/16 11:19 Dose: 118 ml Lidocaine HCl (Xylocaine 2% Jelly) 5 ml MUCMEM ONETIME ONE Stop: 10/24/16 15:19 Last Admin: 10/24/16 16:08 Dose: 5 ml Lidocaine HCl (Xylocaine 2% Jelly) 5 ml MUCMEM ONETIME ONE Stop: 10/24/16 15:20 Last Admin: 10/24/16 16:08 Dose: 5 ml Morphine Sulfate (Morphine) 4 mg IVPUSH Q4H PRN PRN Reason: Abdominal Pain Last Admin: 10/24/16 17:35 Dose: 4 mg - Exam Lungs: Clear to Auscultation, Normal Respiratory Effort Cardiovascular: Regular Rate, Regular Rhythm GI/Abdominal Exam: Normal Bowel Sounds, Soft, Non-Tender, No Distention - Problem List & Annotations (1) Small bowel obstruction SNOMED Code(s): 258893908 Code(s): K56.69 - OTHER INTESTINAL OBSTRUCTION Status: Resolved Current Visit: Yes - Problem List Review Problem List Initiated/Reviewed/Updated: Yes - My Orders Last 24 Hours: Active Orders 24 hr Category Date Time Status Full Liquid Diet [DIET] Diet 10/27/16 Breakfast Active NG [Nasogastric Orogastric Tube Removal] [OM.PC] Oth 10/26/16 10:44 Ordered Routine Medication Orders Potassium Chloride/Dextrose/Sod Cl (D5 1/2 Ns W/ 20 Meq/L Kcl) 1,000 mls @ 125 mls/hr IV Q8H [facility] Last Admin: 10/27/16 01:35 Dose: 125 mls/hr Infusion: 10/27/16 01:01 Dose: 125 mls/hr Admin: 10/26/16 17:01 Dose: 125 mls/hr Infusion: 10/26/16 17:01 Dose: 125 mls/hr Admin: 10/26/16 09:11 Dose: 125 mls/hr Infusion: 10/26/16 09:11 Dose: 125 mls/hr Admin: 10/26/16 01:35 Dose: 125 mls/hr Infusion: 10/26/16 01:35 Dose: 125 mls/hr Admin: 10/26/16 01:31 Dose: 125 mls/hr Infusion: 10/26/16 01:22 Dose: 125 mls/hr Admin: 10/25/16 17:22 Dose: 125 mls/hr Infusion: 10/25/16 17:22 Dose: 125 mls/hr Admin: 10/25/16 09:43 Dose: 125 mls/hr Morphine Sulfate (Morphine) 2 mg IVPUSH Q1H PRN PRN Reason: Pain Last Admin: 10/26/16 09:37 Dose: 2 mg Admin: 10/25/16 05:39 Dose: 2 mg Nicotine (Habitrol) 14 mg TRDERM DAILY@1600 [facility] Last Admin: 10/26/16 16:25 Dose: Not Given Admin: 10/25/16 16:59 Dose: Not Given Admin: 10/24/16 19:44 Dose: Ondansetron HCl (Zofran) 4 mg IVPUSH Q4H PRN PRN Reason: Nausea/Vomiting Pantoprazole Sodium (Protonix Iv) 40 mg IVPUSH Q24H [facility] Last Admin: 10/26/16 16:28 Dose: 40 mg Admin: 10/25/16 16:16 Dose: 40 mg Admin: 10/24/16 17:10 Dose: 40 mg Sodium Chloride (Saline Flush) 10 ml FLUSH ASDIRECTED PRN PRN Reason: Keep Vein Open Last Admin: 10/24/16 10:24 Dose: 10 ml - Assessment Assessment (Free Text/Narrative):: appears to be resolved. - Plan Plan (Free Text/Narrative):: from my perspective can be discharged.
--- NOTE | 2016-10-27 10:08 | PN ---
DATE SEEN: 10/27/2016 CHIEF COMPLAINT: Small bowel obstruction. HISTORY OF PRESENT ILLNESS: A 51-year-old male who was admitted for small bowel obstruction. Overnight, he was able to eat well, and is passing stool and gas. He is able to go home this morning. PAST MEDICAL HISTORY: History of hypertension, gout, and hyperlipidemia. MEDICATIONS: Reviewed. ALLERGIES: Reviewed. PHYSICAL EXAMINATION: GENERAL: He is not in distress. VITAL SIGNS: He is afebrile. He has a blood pressure of 124/87. EARS, NOSE, and THROAT: Negative. NECK: Supple. CHEST: Crackles in the bases. EXTREMITIES: No edema. ABDOMEN: Soft and benign. LABORATORY DATA: No new labs today. FINAL IMPRESSION: 1. Small bowel obstruction. 2. Hypertension. 3. Gout. PLAN: My plan is to discharge him home on his regular home medications. We will follow up next week. I discussed this with Dr. Kelley and he is in agreement. The patient is tolerating fluids, and he is being conservatively managed successfully. /[id number] BECKY/ALLISON
--- NOTE | 2016-10-27 21:08 | DISCH ---
DISCHARGE DATE: 10/27/2016 REASON FOR ADMISSION: 1. Small bowel obstruction. 2. Dehydration. 3. Hypertension. DISCHARGE DIAGNOSES: 1. Small bowel obstruction. 2. Dehydration. 3. Hypertension. BRIEF HISTORY AND HOSPITAL COURSE: A 51-year-old male admitted for abdominal pain, vomiting, and dehydration and found to have small-bowel obstruction on abdominal CT done on 10/24/2016. Managed successfully with an NG tube conservatively and n.p.o. status, ready to go home this morning after tolerating fluids and fluid diet. DISCHARGE MEDICATIONS: He will return home with his home medications of Lipitor, lisinopril, allopurinol, pantoprazole. FOLLOWUP: Will see me or any primary care physician next week on . I spent more than 35 minutes in the discharge of this patient. /[id number] BECKY/ALLISON
== END 2016-10-27 10:10 | disposition home or self-care (01) | DRG 390 ==
LOC: FB.MS 07:40 → OBSVTOIN 10-25 07:40
PROVIDERS: ADMIT Family Medicine; ATTEND Family Medicine
PROC: 0D9670Z Drainage of Stomach with Drainage Device, Via Natural or Artificial Opening (ICD-10-PCS; principal; 2016-10-25)
DX: K56.60 Unspecified intestinal obstruction (principal); E86.0 Dehydration; F17.210 Nicotine dependence, cigarettes, uncomplicated; Z85.528 Personal history of other malignant neoplasm of kidney; Z90.5 Acquired absence of kidney; M10.9 Gout, unspecified; K21.9 Gastro-esophageal reflux disease without esophagitis; E78.00 Pure hypercholesterolemia, unspecified; J02.9 Acute pharyngitis, unspecified; I10 Essential (primary) hypertension; Z79.899 Other long term (current) drug therapy
CPT/HCPCS: 36415; 74177; 80053; 81003; 82150; 85025; 85027; 87015; 87045; 87046; 87899; 96361; 96374; 96375; 96376; C9113; G0378; G0379; J2270; J3480; J7040; J7050; Q9967